=== PATIENT | female | born 1990 | race American Indian/Alaskan Native ===

== ENCOUNTER 2016-08-10 13:46 | Emergency (ER) | payer SELFPAY ==
[2016-08-10 13:59] VITALS: BP 115/78
[2016-08-10 15:27] LABS: Bilirubin,Urine NEG (Negative); Blood,Urine NEG (Negative); Ketones,Urine TR mg/dL (Negative); Leukocyte Esterase,Urine SM (Negative); Mucus,Urine 3+ /HPF; Nitrite,Urine NEG (Negative); Protein,Urine <15 mg/dL mg/dL (Negative); Urobilinogen,Urine < 2.0 mg/dL (<2.0); WBC,Urine < 1.0 /HPF (0.0-6.0)
[2016-08-10] MEDS ORDERED: ZITHROMAX PO ONE (19:43)
[2016-08-10] MEDS ORDERED: XYLOCAINE 1% MPF 5 mL INFILTRATI ONE (19:43)
[2016-08-10] MEDS ORDERED: ROCEPHIN IM ONE (19:43)
--- NOTE | 2016-08-10 20:03 | Emergency Department Report ---
HPI - General Chief Complaint: Urogenital-Female Time Seen by Provider: 08/10/16 17:23 - HPI HPI: 26-year-old female presents today with yellow vaginal discharge 2 days. Positive for unprotected sex and would like to be tested for STD. Denies any history of STD. Denies burning on urination, blood in urine, increased urinary frequency or urgency, vaginal bleeding. Positive for minimal suprapubic tenderness with urination. Denies history of similar symptoms. Denies fever, chills, nausea, vomiting, chest pain, shortness of breath, abdominal pain. Her last menstrual period was 08/05/16. ED Past Medical Hx - Past Medical History Previous Medical History?: No - Surgical History Past Surgical History?: No - Social History Smoking Status: Never Smoker Substance Use Type: None ED Review of Systems ROS: Stated complaint: ABD PAIN Other details as noted in HPI Constitutional: denies: chills, fever, malaise Eyes: denies: eye pain ENT: denies: ear pain, throat pain, congestion Respiratory: denies: cough, shortness of breath, wheezing Cardiovascular: denies: chest pain, palpitations Endocrine: no symptoms reported Gastrointestinal: denies: abdominal pain, nausea, vomiting Genitourinary: discharge. denies: urgency, dysuria, frequency, hematuria Neurological: denies: headache, weakness Physical Exam - Physical Exam Vital Signs: Vital Signs 08/10/16 13:55 Temperature 99.0 F Pulse Rate 89 Respiratory 18 Rate Blood Pressure 115/78 O2 Sat by Pulse 100 Oximetry Physical Exam: GENERAL: The patient is well-developed and well-nourished. Patient is in NAD. HEAD: Normocephalic. Atraumatic. CHEST/LUNGS: Clear to auscultation throughout. HEART/CARDIOVASCULAR: Regular rate and rhythm. No murmurs, rubs or gallops. ABDOMEN: Abdomen is soft, nontender. Bowel sounds normoactive. No guarding or rebound tenderness. Negative for CVA tenderness bilaterally. PELVIC: Normal external genitalia, vaginal canal and cervix. Positive for white discharge in the vaginal canal. No blood noted. EXTREMITIES: Peripheral pulses intact. Capillary refill less than 2 seconds. NEURO: Alert and oriented x 3. Normal gait. ED Course Vital Signs 08/10/16 13:55 Temperature 99.0 F Pulse Rate 89 Respiratory 18 Rate Blood Pressure 115/78 O2 Sat by Pulse 100 Oximetry ED Medical Decision Making - Lab Data Vital Signs 08/10/16 13:55 Temperature 99.0 F Pulse Rate 89 Respiratory 18 Rate Blood Pressure 115/78 O2 Sat by Pulse 100 Oximetry Lab Results 08/10/16 Range/Units 15:05 Urine Color Yellow (Yellow) Urine Turbidity Clear (Clear) Urine pH 5.0 (5.0-7.0) Ur Specific [place] 1.021 (1.003-1.030) Urine Protein <15 mg/dl (Negative) mg/dL Urine Glucose (UA) Neg (Negative) mg/dL Urine Ketones Tr (Negative) mg/dL Urine Blood Neg (Negative) Urine Nitrite Neg (Negative) Ur Reducing Substances Not Reportable Urine Bilirubin Neg (Negative) Urine Ictotest Not Reportable Urine Urobilinogen < 2.0 (<2.0) mg/dL Ur Leukocyte Esterase Sm (Negative) Urine WBC (Auto) < 1.0 (0.0-6.0) /HPF Urine RBC (Auto) 1.0 (0.0-6.0) /HPF U Epithel Cells (Auto) 1.0 (0-13.0) /HPF Urine Mucus 3+ /HPF Urine HCG, Qual Positive A (Negative) - Medical Decision Making 26-year-old female presents today with rash on discharge 2 days. Urine test is positive. Her urinalysis reveals small leukocyte esterase. Her wet prep reveals no yeast, Trichomonas, clue cells. Gonorrhea and chlamydia testing has been ordered. Patient was treated with azithromycin and ceftriaxone prophylactically. Patient is in no acute distress at this time. She will be discharged home and is encouraged to follow up with a primary care provider. She is encouraged to return to the emergency room for any worsening symptoms. Critical care attestation.: If time is entered above; I have spent that time in minutes in the direct care of this critically ill patient, excluding procedure time. ED Disposition Clinical Impression: Vaginal discharge Disposition: DISCHARGED TO HOME OR SELFCARE Is pt being admited?: No Does the pt Need Aspirin: No Condition: Stable Instructions: Gonococcal Urethritis (ED), Chlamydia Infection (ED) Additional Instructions: Follow-up with primary care provider and OBGYN. Return to the emergency department if symptoms worsen. Referrals: CARLA CARLIN MD [Primary Care Provider] - 3-5 Days GOLDEN SMITH MD [Staff Physician] - 3-5 Days Forms: Work/School Release Form(ED), STI Treatment and Prevention Time of Disposition: 20:11
== END 2016-08-10 20:26 | disposition home or self-care (01) ==
LOC: ED 13:46
DX: N89.8 Other specified noninflammatory disorders of vagina (principal)
CPT/HCPCS: 81001; 81025; 87210; 87591; 96372; 99284; J0696